=== PATIENT | female | born 1980 | race Caucasian/White ===

== ENCOUNTER 2017-11-18 08:45 | Inpatient (IN) | payer SELFPAY ==
[2017-11-18 09:14] VITALS: BMI 33.1
[2017-11-18] MEDS: Lactated Ringers 1,000 ML 50 ML IV (09:15)
[2017-11-18 09:40] LABS: Hematocrit 36.2 % (37-47); Hemoglobin 11.1 g/dl (12.0-15.0); Mean Corp Hgb Conc 30.7 g/gl (32-36); Mean Corpuscular Hgb 24.2 pg (27.0-32.0); Mean Platelet Vol. 9.3 fl (6.2-12.0); Platelet Count 179 K/mm3 (150-450); RBC Distribution Width CV 18.1 % (11.6-14.6); RBC Distribution Width SD 51.4 fl (35.1-43.9); Red Blood Count 4.58 M/mm3 (4.2-5.4); Scan Indicated on CBC? Y/N NO; White Blood Count 9.1 K/mm3 (4.4-11.0)
--- NOTE | 2017-11-18 09:56 | PCM.HP.OB ---
History Date of Admission: 11/18/17 Final BRIGIDA: 11/23/17 Final BRIGIDA Source: LMP Gestational age: 39 Weeks and 2 Days History of this : @ 39.2 wks c/o contractions since 6am- on admission patient was 6cm rapdily progressed to FD- transverse position head at maternal left. After IV started External cephalic version performed- Vertex confirmed with membranes protruding beyond head into vagina- Patient placed in Hands and knees to bring head down and to reduced membranes as not sure if cord was present. Pertinent Past Medical History: PMH: LLE DVT- declines anticoagulation PSX: wisdom tooth extraction Allergies No Known Allergies Allergy (Verified 06/27/14 11:11) Smoking Status: Never smoker Alcohol: None Drug Use: none Number of Fetus(es): 1 Review of Systems Constitutional: Denies: Anorexia Cardiovascular: Denies: Chest Pain Physical Exam General: Alert, Oriented x3 Abdomen: Soft, Gravid Extremities:: Other - significant LE varicose veins Estimated gestational size: Appropriate for gestational size Presentation: Cephalic Cervix Dilation (cm): 10 Station: -2 Effacement (%): 100 Assessment/Plan @ 39.2 wks in active labor 1) admit to l&D 2) vertex after external cephalic version 3) Monitor fhr/toco 4) anticpate 5) PNL reviewed- GBS neg, AB+, HIV neg, hep b neg, syphilis neg, rub imm
[2017-11-18] MEDS: Oxytocin 30 units/NS 500 ml 30 UNITS/500 ML IV.SOLN 334 UNITS IV (11:13)
--- NOTE | 2017-11-18 11:16 | PCM.OB.VAG ---
Vaginal Delivery Maternal Presentation: Active Labor, - - transverse at time of arrival- external cephalic version performed- successful . Method of Induction: Pitocin Amniotic Membrane Rupture Type: Artificial Amniotic Fluid Description: Clear Final BRIGIDA: 11/23/17 Gestational age: 39 Weeks and 2 Days Date of Procedure: 11/18/17 Pre-Operative Diagnosis: term gestation in active labor Post-Operative Diagnosis: live male infant Surgery/ Procedure Performed: Spontaneous Vaginal Delivery Type of Anesthesia: None Description of Procedure: of live male infant. pt without epidural- tightening up - asked to pull legs back to allow more room for delivery- head delivered followed by anterior shoulder with gentle downward traction. Delayed cord clamping performed. Presentation: Vertex Placental Delivery Description: Spontaneous Placenta Disposition: [facility] Cord Vessel Description: 3 Vessels Cord Entanglement: None Estimated Blood Loss: 300 Infant A gender: Male (1 minute): 8 (5 minute): 9 Episiotomy Description: None Laceration: None Medications given after delivery: IV Pitocin Complications: None
--- NOTE | 2017-11-18 11:27 | DCINST_ITS ---
Discharge Diet: No Restrictions Discharge Activity: Return to Normal Activity, May not drive while taking narcotic pain medications., May Shower May resume sexual activity in: 4-6 weeks Additional Activity Instructions:: Nothing in the vagina for 4-6 weeks. You may return to work/school in 6 weeks. Call your doctor if your incision/area has: Continuous Slow Oozing, Sudden Increased Bleeding, Increased Pain/ Swelling, Increased Redness, Foul Smelling Discharge Additional Instructions: If you experience any of the following, contact your healthcare provider. * Bleeding that soaks a pad every hour for 2 hours * Fever 100.4 or higher * Unrelieved incision or abdominal pain * Swelling, redness, discharge or bleeding from your incision or episiotomy site * Your incision begins to separate * Problems urinating (including inability to urinate or burning while urinating) . * Visual changes * Severe headache * Flu-like symptoms * Pain or redness in one of both of your breasts * Pain, warmth, tenderness or swelling in your legs, especially the calf area * Frequent nausea and vomiting * Symptoms of depression or anxiety If you experience any of the following, call 911 or go to the nearest Emergency Room. * Chest pain * Problems breathing * Seizure activity * Partial or complete paralysis of a body part, slurred speech, weakness or drooping of the face, or a sudden inability to walk or hold your balance Allergies/Adverse Reactions: Allergies No Known Allergies Allergy (Verified 06/27/14 11:11) Medications to take at Discharge Calcium (Elemental) [Os-Barron 500] 500 mg PO BIDCM 06/27/14 Garlic 4 capsule PO BID 06/27/14 [place]-3 Fatty Acids/Fish Oil [[place] 3 Fish Oil Softgel] 4 capsule PO TID Vits [Prenatabs FA ] 1 tablet PO BID 06/27/14 Ferrous Sulfate Syrup 300 mg PO BIDCM 03/01/16 Naproxen [Naprosyn] 250 - 500 mg PO Q8H PRN PRN #30 tab 11/18/17 The following prescriptions were given: Naproxen [Naprosyn] 250 - 500 mg PO Q8H PRN PRN #30 tab PRN Reason: MILD PAIN (1-10/23) When: Call to make an appointment with your doctor in 6 weeks. If you had elevated Blood Pressure or 4th degree laceration you will need to be seen in 2 weeks.
--- NOTE | 2017-11-18 11:27 | PCM.DCVAG ---
Discharge Diet: No Restrictions Discharge Activity: Return to Normal Activity, May not drive while taking narcotic pain medications., May Shower May resume sexual activity in: 4-6 weeks Additional Activity Instructions:: Nothing in the vagina for 4-6 weeks. You may return to work/school in 6 weeks. Call your doctor if your incision/area has: Continuous Slow Oozing, Sudden Increased Bleeding, Increased Pain/ Swelling, Increased Redness, Foul Smelling Discharge Additional Instructions: If you experience any of the following, contact your healthcare provider. Bleeding that soaks a pad every hour for 2 hours Fever 100.4 or higher Unrelieved incision or abdominal pain Swelling, redness, discharge or bleeding from your incision or episiotomy site Your incision begins to separate Problems urinating (including inability to urinate or burning while urinating). Visual changes Severe headache Flu-like symptoms Pain or redness in one of both of your breasts Pain, warmth, tenderness or swelling in your legs, especially the calf area Frequent nausea and vomiting Symptoms of depression or anxiety If you experience any of the following, call 911 or go to the nearest Emergency Room. Chest pain Problems breathing Seizure activity Partial or complete paralysis of a body part, slurred speech, weakness or drooping of the face, or a sudden inability to walk or hold your balance Allergies/Adverse Reactions: Allergies No Known Allergies Allergy (Verified 06/27/14 11:11) Medications to take at Discharge Calcium (Elemental) [Os-Barron 500] 500 mg PO BIDCM 06/27/14 Garlic 4 capsule PO BID 06/27/14 [place]-3 Fatty Acids/Fish Oil [[place] 3 Fish Oil Softgel] 4 capsule PO TID 06/27/14 Vits [Prenatabs FA ] 1 tablet PO BID 06/27/14 Ferrous Sulfate Syrup 300 mg PO BIDCM 03/01/16 Naproxen [Naprosyn] 250 - 500 mg PO Q8H PRN PRN #30 tab 11/18/17 The following prescriptions were given: Naproxen [Naprosyn] 250 - 500 mg PO Q8H PRN PRN #30 tab PRN Reason: MILD PAIN (1-3/10) When: Call to make an appointment with your doctor in 6 weeks. If you had elevated Blood Pressure or 4th degree laceration you will need to be seen in 2 weeks.
[2017-11-18] MEDS: Acetaminophen 500 MG Tablet 1000 MG PO (11:42)
[2017-11-18] MEDS: Oxytocin 30 units/NS 500 ml 30 UNITS/500 ML IV.SOLN 167 UNITS IV (11:45)
[2017-11-18 17:08] VITALS: BP 96/66; PULSE 92; RESP 16; TEMP 36.1; O2SAT 98
--- NOTE | 2017-11-18 17:12 | NURSING ---
assumed pt care at 1700
[2017-11-18 19:58] VITALS: BP 94/66; PULSE 92; RESP 16; TEMP 36.2; O2SAT 96
[2017-11-19 02:10] VITALS: BP 102/66; PULSE 94; RESP 18; TEMP 36.4; O2SAT 99
--- NOTE | 2017-11-19 08:03 | PCM.PN.OB ---
Subjective: pt seen at bedside, doing well. pt reports good pain control. lochia mild. breast feeding. - Physical Exam General: Alert, Oriented x3 Abdomen: Soft, Non Tender, - - fundus firm Extremities: No Calf Tenderness Vital Signs Temp Pulse Resp BP Pulse Ox 97.5 F L 94 18 102/66 99 11/19/17 02:10 11/19/17 02:10 11/19/17 02:10 11/19/17 02:10 11/19/17 02:10 Oxygen Delivery Method Room Air Weight: 84.878 kg Body Mass Index (BMI) 33.1 Intake and Output for Last 24 Hours 11/17/17 11/18/17 11/19/17 23:59 23:59 23:59 Output Total 200 / 200 Balance -200 / -200 Laboratory Tests Past 24 Hrs 11/18/17 11/18/17 09:20 09:20 WBC 9.1 RBC 4.58 Hgb 11.1 L Hct 36.2 L MCV 79.0 L MCH 24.2 L MCHC 30.7 L RDW 18.1 H RDW Differential 51.4 H Plt Count 179 MPV 9.3 Blood Type AB POSITIVE Antibody Screen NEGATIVE Medical Necessity - Tobacco Use Smoking Status: Never smoker Assessment/Plan PPD#1, doing well routine care pain mgmt pt declines anticoagulation treatment- h/o DVT dc home
[2017-11-19 09:04] VITALS: BP 99/60; PULSE 102; RESP 15; TEMP 36.7; O2SAT 98
[2017-11-19 13:26] VITALS: BP 106/72; PULSE 110; RESP 14; TEMP 36.4; O2SAT 98
== END 2017-11-19 14:55 | disposition home or self-care (01) | DRG 774 ==
PROVIDERS: Admitting Provider Obstetrics & Gynecology; Visit Provider Obstetrics & Gynecology
DX: O32.2XX0 Maternal care for transverse and oblique lie, not applicable or unspecified (principal); O22.33 Deep phlebothrombosis in pregnancy, third trimester; I82.402 Acute embolism and thrombosis of unspecified deep veins of left lower extremity; Z3A.39 39 weeks gestation of pregnancy; Z37.0 Single live birth
CPT/HCPCS: 59025; 59050; 85027; 86850; 86900; 99218; J7120; G0378

== ENCOUNTER 2019-08-18 08:15 | Inpatient (IN) | payer SELFPAY ==
[2019-08-18] MEDS: Lactated Ringers 1,000 ML 125 ML IV (07:35)
[2019-08-18 07:51] VITALS: BMI 31.0
--- NOTE | 2019-08-18 08:15 | PCM.HP.OB ---
- Problem List (1) Oblique presentation, antepartum Status: Acute (2) History of DVT (deep vein thrombosis) Status: Acute (3) Anemia Status: Acute (4) Late care Status: Acute (5) Short interval between pregnancies affecting , antepartum Status: Acute (6) History of delivery Status: Acute (7) Advanced maternal age (AMA) in Status: Acute History Date of Admission: 08/18/19 Final BRIGIDA: 09/01/19 Final BRIGIDA Source: LMP Gestational age: 38 Weeks and 0 Days History of this : This is a 39 year-old, G 10, P8107, at 38 weeks gestational age who presents for a version and IOL for variable lie. Pt feels well. No ctx, vb, lof. Good FM. Allergies No Known Allergies Allergy (Verified 08/18/19 07:56) Home Medications: Home Medications Calcium (Elemental) [Os-Barron 500] 500 mg PO BIDCM 06/27/14 Garlic 4 capsule PO BID 06/27/14 [place]-3 Fatty Acids/Fish Oil [[place] 3 Fish Oil Softgel] 4 capsule PO TID 06/27/14 Vits [Prenatabs FA ] 1 tablet PO BID 06/27/14 Ferrous Sulfate Syrup 300 mg PO BIDCM 03/01/16 Smoking Status: Never smoker Number of Fetus(es): 1 NST - FHR Rate Baby A Baseline: 130 Variability:: Moderate Accelerations:: 15 x 15 Decelerations:: None NST Reactive:: Yes FHR Category:: Category I Uterine Activity:: Irritability History Past Pregnancies: Past Pregnancies Delivery Date Name GA/ Weeks Outcome Route Wt Sex Labor Length Anesthesia Delivery Location Provider FOB Labs: GBS neg Hgb 10.3 Syphilis NR RI Hep B neg HIV NR AB positive Antibody screen neg 1 hr GTT 128 GC/CT neg Expected Delivery Method: Spontaneous Vaginal Review of Systems Gynecological: Reports: - - No ctx, vb, lof. +FM Physical Exam General: Alert, No apparent distress HEENT: Atraumatic Abdomen: Soft, Non Tender, Gravid Extremities:: No edema Neurological: Neuro grossly intact [employer]: Normal external genitalia Estimated gestational size: Appropriate for gestational size Presentation: - - Oblique Cervix Dilation (cm): 4 Station: -2 Effacement (%): 60 Assessment/Plan All Active Problems Oblique presentation, antepartum (Acute) History of DVT (deep vein thrombosis) (Acute) Anemia (Acute) Late care (Acute) Short interval between pregnancies affecting , antepartum (Acute) History of delivery (Acute) Advanced maternal age (AMA) in (Acute) This is a 39 year-old, G 10, P 7, at 38 weeks gestational age who presents for a version and induction of labor due to variable lie. -Transabdominal ultrasound performed and fetus is in oblique position with head in the maternal right pelvis. head palpated on cervical exam, but the head is very ballotable. Unable to rupture membranes given this. Discussed with Dr. Freedman and will start Pitocin at this time. We will then reassess and see if rupture of membranes can be performed - Admit for induction - Pt does not desire epidural - GBS negative - H/o DVT: Has been refusing anticoagulation and understands the risk of DVT/PE and - Pit gtt and then will perform another US. Will rupture when able
[2019-08-18 08:30] LABS: Absolute Lymphocyte Count 1.09 X10^3/uL (0.83-4.51); Absolute Neutrophil Count 5.2 X10^3/uL (2.0-7.7); Basophil# 0.02 X10^3/uL; Basophil% 0.3 % (0-1); Eosinophil# 0.11 X10^3/uL; Eosinophils% 1.6 % (0-5); Hematocrit 31.7 % (37-47); Hemoglobin 9.9 g/dL (12.0-15.0); Lymphocyte # 1.09 X10^3/ul (4.0); Lymphocyte % 15.6 % (19-41); Mean Corp Hgb Conc 31.2 g/dL (32-36); Mean Corpuscular Hgb 24.8 pg (27.0-32.0); Mean Corpuscular Volume 79.3 fL (81-99); Mean Platelet Vol. 9.8 fl (6.2-12.0); Monocyte# 0.54 X10^3/uL; Monocyte% 7.7 % (0-10); NRBC Flagged by Analyzer 0 % (0-5); Neutrophil # 5.17 X10^3/uL (2.7-7.7); Neutrophil % 74.1 % (47-70); Platelet Count 183 K/mm3 (150-450); RBC Distribution Width CV 18.1 % (11.6-14.6); RBC Distribution Width SD 51.6 fl (35.1-43.9)
[2019-08-18] MEDS: Oxytocin 30 units/NS 500 ml 30 UNITS/500 ML IV.SOLN IV (08:38)
[2019-08-18] MEDS: Lactated Ringers 1,000 ML 50 ML IV (08:38)
--- NOTE | 2019-08-18 12:42 | PCM.PN.BLA ---
Progress Note Cvx 460/-2, head palpated, AROM performed in usual fashion with return of clear fluid. head engaged in pelvis and well applied to cervix. Anticipate .
[2019-08-18] MEDS: Lactated Ringers 500 ML 999 ML IV (14:59)
[2019-08-18] MEDS: Oxytocin 30 units/NS 500 ml 30 UNITS/500 ML IV.SOLN 334 UNITS IV (15:41)
--- NOTE | 2019-08-18 15:51 | OP.PCM_ITS ---
Problem List (1) Oblique presentation, antepartum Status: Acute (2) History of DVT (deep vein thrombosis) Status: Acute (3) Anemia Status: Acute (4) Late care Status: Acute (5) Short interval between pregnancies affecting , antepartum Status: Acute (6) History of delivery Status: Acute (7) Advanced maternal age (AMA) in Status: Acute Report of Operation Date of Procedure: 08/18/19 Surgery/Procedure Performed:: Description of Surgical Findings:: Viable male in cephalic presentation. Clear fluid. Intact and normal- appearing placenta with a three-vessel cord. Type of Anesthesia:: None Special Medications: None Specimen's removed: Placenta Drains: None Estimated Blood Loss (mL): 200 Description of Procedure: Patient complete and pushing. Head, anterior shoulder, posterior shoulder, followed by body were delivered without any force or delay. Viable male infant was delivered atraumatically and placed on maternal abdomen. Cord was clamped and cut after a 60 sec delay. The placenta was delivered spontaneously and noted to be intact and normal-appearing with a three-vessel cord. Fundus was firm and bleeding hemostatic. No lacerations were noted. Grafts/Implants Used: None - Complications None - Admit VTE Documentation VTE Present on Admission: No Vaginal Delivery Maternal Presentation: Medically Indicated Induction Method of Induction: Pitocin, Amniotomy Amniotic Membrane Rupture Type: Artificial Amniotic Fluid Description: Clear Surgery/ Procedure Performed: Spontaneous Vaginal Delivery Type of Anesthesia: None Presentation: Vertex Placental Delivery Description: Spontaneous Cord Vessel Description: 3 Vessels Cord Entanglement: None Infant A gender: Male Episiotomy Description: None Laceration: None Medications given after delivery: IV Pitocin Complications: None
[2019-08-18 20:11] VITALS: BP 96/66; PULSE 75; RESP 18; TEMP 36.3
[2019-08-19 00:40] VITALS: BP 103/61; PULSE 86; RESP 18; TEMP 36.1; O2SAT 97
[2019-08-19 04:50] VITALS: BP 94/62; PULSE 66; RESP 18; TEMP 36.4; O2SAT 95
[2019-08-19 07:33] VITALS: BP 98/56; PULSE 84; RESP 16; TEMP 36.4
--- NOTE | 2019-08-19 09:26 | PCM.PN.OB ---
Patient Problems: Active and Suspected Problems Oblique presentation, antepartum (Acute) History of DVT (deep vein thrombosis) (Acute) Anemia (Acute) Late care (Acute) Short interval between pregnancies affecting , antepartum (Acute) History of delivery (Acute) Advanced maternal age (AMA) in (Acute) Subjective: Pt doing well. No pain. Ambulating and voiding without difficulty. Tolerating diet. No lightheadedness, dizziness, CP, SOB, leg pain. without difficulty. - Physical Exam Vitals/I&O's: Vital Signs Temp Pulse Resp BP Pulse Ox 97.5 F L 84 16 98/56 L 95 08/19/19 07:33 08/19/19 07:33 08/19/19 07:33 08/19/19 07:33 08/19/19 04:50 Oxygen Delivery Method Room Air Weight: 186 lb 11.704 oz Body Mass Index (BMI) 31.0 Intake and Output for Last 24 Hours 08/17/19 08/18/19 08/19/19 23:59 23:59 23:59 Intake Total 1510.82 / 1510.82 Output Total 600 / 600 Balance 910.82 / 910.82 General: Alert, No apparent distress HEENT: Atraumatic Abdomen: Soft, Non Tender, - - FF@U Extremities: No edema, No Calf Tenderness Skin: No rashes Neurological: Neuro grossly intact Psych/Mental Status: Normal Affect, Appropriate Laboratory Results 08/18/19 07:35: Antibody Screen NEGATIVE Current Medications Acetaminophen (Tylenol) 1,000 mg PO Q8H PRN PRN PRN Reason: Pain Score 1-3/10 Bisacodyl (Dulcolax) 10 mg RECTAL UD PRN PRN Reason: If no BM Dibucaine (Dibucaine) 1 applic TOPICAL TID PRN PRN; Protocol PRN Reason: Discomfort Enoxaparin Sodium (Lovenox) 40 mg SC 2200 RAJESH Last Admin: 08/18/19 22:34 Dose: Not Given Documented by: Hydrocortisone (Hytone) 1 applic TOPICAL TID PRN PRN; Protocol PRN Reason: Discomfort Ibuprofen (Motrin) 600 mg PO Q6H PRN PRN PRN Reason: Pain Score 1-3/10 Methylergonovine Maleate (Methergine) 0.2 mg IM X1 PRN PRN Reason: Excess bleeding/uterine atony Ondansetron HCl (Zofran) 4 mg IV Q4H PRN PRN PRN Reason: Nausea Senna/Docusate Sodium (Senokot-S, Stephanie-Colace) 1 - 2 tablet PO DAILY PRN PRN PRN Reason: Constipation Simethicone (Mylicon) 80 mg PO PCHS PRN PRN Reason: Indigestion/Stomach pain Sodium Chloride () 5 - 15 ml IV UD PRN PRN Reason: SALINE FLUSH Medical Necessity - Tobacco Use Smoking Status: Never smoker Assessment/Plan All Active Problems Oblique presentation, antepartum (Acute) History of DVT (deep vein thrombosis) (Acute) Anemia (Acute) Late care (Acute) Short interval between pregnancies affecting , antepartum (Acute) History of delivery (Acute) Advanced maternal age (AMA) in (Acute) PPD#1 s/p - Pt doing well - - Declines control - H/o DVT: Pt refused Lovenox yesterday. Discussed risk of DVT/PE and reviewed importance of Lovenox for 6 weeks. Pt declines Lovenox . Reviewed signs of DVT/PE and when to call or go to ED. She understands risk of - Dispo: Pt desires to go home today
--- NOTE | 2019-08-19 09:30 | DCINST_ITS ---
Discharge Diet: No Restrictions Discharge Activity: May Drive, May Shower May resume sexual activity in: 6 weeks Ice area for (Minutes): 20 Weight Bearing Status: Full weight bearing Lifting Restrictions: None Call your doctor if you observe: Fever of 101 or Higher, Inability to urinate, Inability to have a bowel movement, Using more than one pad per hour, Shortness of breath, Dizziness, Swelling in the ankles, Chest pain, Increased palpitations (irregular heartbeat), Calf discomfort, Uncontrolled pain Instructions: After a Vaginal Additional Instructions: If you experience any of the following, contact your healthcare provider. * Bleeding that soaks a pad every hour for 2 hours * Fever 100.4 or higher * Unrelieved incision or abdominal pain * Swelling, redness, discharge or bleeding from your incision or episiotomy site * Your incision begins to separate * Problems urinating (including inability to urinate or burning while urinating). * Visual changes * Severe headache * Flu-like symptoms * Pain or redness in one of both of your breasts * Pain, warmth, tenderness or swelling in your legs, especially the calf area * Frequent nausea and vomiting * Symptoms of depression or anxiety If you experience any of the following, call 911 or go to the nearest Emergency Room. * Chest pain * Problems breathing * Seizure activity * Partial or complete paralysis of a body part, slurred speech, weakness or drooping of the face, or a sudden inability to walk or hold your balance Allergies/Adverse Reactions: Allergies No Known Allergies Allergy (Verified 08/18/19 07:56) Medications to take at Discharge Calcium (Elemental) [Os-Barron 500] 500 mg PO BIDCM 06/27/14 Garlic 4 capsule PO BID 06/27/14 [place]-3 Fatty Acids/Fish Oil [[place] 3 Fish Oil Softgel] 4 capsule PO TID 06/27/14 Vits [Prenatabs FA ] 1 tablet PO BID 06/27/14 Ferrous Sulfate Syrup 300 mg PO BIDCM 03/01/16 Please Follow Up With: Piedad Contreras DO When: 6 weeks Primary Care Physician: Care Physician,No Primary [Primary Care Provider] - Test Results: Test results from this visit will be discussed in further detail at your follow- up appointment, if applicable.
[2019-08-19 12:00] VITALS: BP 93/57; PULSE 86; RESP 16; TEMP 36.6
[2019-08-19 17:56] VITALS: BP 114/69; PULSE 82; RESP 16; TEMP 36.7
== END 2019-08-19 17:20 | disposition home or self-care (01) | DRG 807 ==
LOC: WPOUT 08:20 → WP 08:20
PROVIDERS: Admitting Provider Obstetrics & Gynecology; Referring Provider Obstetrics & Gynecology; Visit Provider Obstetrics & Gynecology
DX: O26.23 Pregnancy care for patient with recurrent pregnancy loss, third trimester (principal); Z37.0 Single live birth; Z3A.38 38 weeks gestation of pregnancy; Z86.718 Personal history of other venous thrombosis and embolism
CPT/HCPCS: 59025; 59050; 85025; 86850; 86900; 86901; 99218; J7120; G0378

== ENCOUNTER 2022-03-03 06:47 | Inpatient (IN) | payer SELFPAY, OTHER ==
[2022-03-03] VITALS (33 sets, daily range): BP systolic 89–123; BP diastolic 55–74; PULSE 77–112; RESP 17; TEMP 36.3–36.9; O2SAT 91–100; BMI 30.1
[2022-03-03] MEDS: Lactated Ringers 1,000 ML 50 ML IV (08:50)
--- NOTE | 2022-03-03 09:01 | PCM.HP.OB ---
HPI - General General Date of Admission: 03/03/22 Date of Service: 03/03/22 HPI Narrative ARNULFO COOLEY, is a 42 F who presents for induction. Maternal Data Information Final BRIGIDA: 03/10/22 Gestational age: 39 weeks [facility] Medical History Superficial varicosities Home Medications Garlic 4 capsule PO BID 06/27/14 [History Last Taken 03/03/22] calcium carbonate 500 mg calcium (1,250 mg) tablet ([place]yster Shell Calcium 500) 500 mg PO BIDCM 06/27/14 [History Last Taken 03/03/22] omega-3 fatty acids-fish oil 684 mg-1,200 mg capsule,delayed release (One-Per-Day [place]-3) 4 capsule PO TID 06/27/14 [History Last Taken 03/03/22] vits,calcium no.78-iron fumarate-folic acid 29 mg-1 mg tablet (Prenatabs FA) 1 tab PO BID 06/27/14 [History Last Taken 03/03/22] ferrous sulfate 300 mg (60 mg iron)/5 mL oral liquid 300 mg PO BIDCM 03/01/16 [History Last Taken 03/03/22] psyllium seed (sugar) oral powder 1 tbsp PO BID Constipation 03/03/22 [History Last Taken 03/02/22] Allergy/AdvReac Type Severity Reaction Status Date / Time No Known Allergies Allergy Verified 08/18/19 07:56 Social History Smoking Status: Never smoker History Elective abortions Hx Para 9 Spontaneous abortions Hx # Term Pregnancies Ectopic pregnancies Hx # Pregnancies Multiple births # of living children NST FHR Rate Baby A Baseline: 130 Variability:: Moderate Accelerations:: 15 x 15 Decelerations:: Variable Uterine Activity:: Irregular ctxs Vital Signs Vital Signs Vital Signs: 03/03/22 08:15 03/03/22 08:15 03/03/22 08:15 Temperature 97.3 F L Pulse Rate 107 H Blood Pressure 93/63 BP Systolic 93 BP Diastolic 63 Pulse Ox 03/03/22 08:16 03/03/22 08:16 07/19/22 08:55 Temperature Pulse Rate 108 H Blood Pressure 123/74 H BP Systolic 123 BP Diastolic 74 Pulse Ox 98 03/03/22 08:55 03/03/22 08:59 Temperature 98.2 F Pulse Rate 81 Blood Pressure BP Systolic BP Diastolic Pulse Ox Weight Weight: 186 lb 9.6 oz Body Mass Index (BMI) 30.1 Physical Exam Const alert, oriented x3 and no apparent distress Chest inspection of chest normal GI soft to palpation, non-tender and non-distended Narrative: cvx - 4.5/70/-3, AROM clear fluid Labs Labs Labs: Blood Type AB POSITIVE Antibody Screen NEGATIVE Hct 34.7 % (37-47) L Hgb 11.1 g/dL (12.0-15.0) L Rhogam given: No See [facility] H&P Assessment & Plan (1) History of DVT (deep vein thrombosis): (2) Late care: (3) Advanced maternal age (AMA) in : COMMENT: @ 39 weeks PLAN: Plan Induction for AMA On pitocin & s/p AROM Vtx presentation confirmed with TAUS COVID negative GBS negative EFW - less than 4500g, patient with adequate pelvis Pain - epidural if desired H/o DVT - patient has declined anticoagulation throughout
[2022-03-03 09:24] LABS: Absolute Lymphocyte Count 1.12 X10^3/uL (0.83-4.51); Absolute Neutrophil Count 6.7 X10^3/uL (2.0-7.7); Basophil# 0.04 X10^3/uL; Basophil% 0.5 % (0-1); Eosinophils% 1.2 % (0-5); Hematocrit 34.7 % (37-47); Hemoglobin 11.1 g/dL (12.0-15.0); Lymphocyte # 1.12 X10^3/ul (0.83-4.51); Lymphocyte % 13.2 % (19-41); Mean Corpuscular Hgb 26.9 pg (27.0-32.0); Mean Corpuscular Volume 84.2 fL (81-99); Mean Platelet Vol. 9.4 fl (6.2-12.0); Monocyte# 0.45 X10^3/uL; Monocyte% 5.3 % (0-10); NRBC Flagged by Analyzer 0 % (0-5); Neutrophil # 6.72 X10^3/uL (2.7-7.7); Neutrophil % 79.2 % (47-70); Platelet Count 170 K/mm3 (150-450); RBC Distribution Width CV 16.9 % (11.6-14.6); RBC Distribution Width SD 51.7 fl (35.1-43.9); Red Blood Count 4.12 M/mm3 (4.2-5.4); White Blood Count 8.5 K/mm3 (4.4-11.0)
[2022-03-03] MEDS: Oxytocin 30 units/NS 500 ml 30 UNITS/500 ML IV.SOLN IV (09:41)
[2022-03-03] MEDS: 0.9% Saline Lock 10 ML Syringe IV (14:54)
[2022-03-03] MEDS: Oxytocin 30 units/NS 500 ml 30 UNITS/500 ML IV.SOLN 334 UNITS IV (16:50)
--- NOTE | 2022-03-03 19:03 | EX.PCM.OBRPT ---
Maternal Data Information Final BRIGIDA: 03/10/22 Gestational age: 39 weeks Vaginal Delivery Maternal Presentation Maternal Presentation: Medically Indicated Induction Type of Induction: Pitocin and Amniotomy Medical Reason for Induction: - (AMA) Operative Information Date of Procedure: 03/03/22 Pre-Operative Diagnosis: Advanced maternal age Post-Operative Diagnosis: Same Surgery / Procedure Performed: Spontaneous Vaginal Delivery Type of Anesthesia: None Estimated Blood Loss: 350ml Findings Description of Procedure: Patient prepped & draped when C/C/+1. She pushed well to deliver the head. head gently guided to allow delivery of anterior and posterior shoulders. No excess traction placed on head. Body delivered and 3VC clamped & cut in delayed fashion. Placenta delivered with gentle traction and good uterine tone obtained. Presentation: JAMARI Amniotic Membrane Rupture Type: Artificial Amniotic Fluid Description: Clear Placental Delivery Description: Expressed Placenta Disposition: [facility] Specimen(s) Removed: Placenta Cord Vessel Description: 3 Vessels Cord Entanglement: None Infant A Gender: Female (1 minute): 8 (5 minute): 9 Delayed Cord Clamping: Yes Post Vaginal Delivery Medications Given After Delivery: IV Pitocin Episiotomy Description: None Laceration: None Complication Complications: None
[2022-03-04 04:30] VITALS: BP 100/64; PULSE 77; RESP 16; TEMP 36.2; O2SAT 99
[2022-03-04 08:20] VITALS: BP 103/68; PULSE 97; RESP 14; TEMP 36.1; O2SAT 99
--- NOTE | 2022-03-04 09:02 | PCM.PN.OB ---
Subjective Subjective Patient is doing well. She denies chest pain, shortness of breath, leg pain. She is ambulating voiding without difficulty. Lochia is normal. She is breast-feeding without complaints. She desires to go home today. Objective Data Objective Data Vital Signs: Vital Signs Temp Pulse Resp BP Pulse Ox O2 Del Method 97 F L 97 14 103/68 99 Room Air 03/04/22 08:20 03/04/22 08:20 03/04/22 08:20 03/04/22 08:20 03/04/22 08:20 03/04/22 08:20 Oxygen Delivery Method Room Air Weight: 186 lb 9.6 oz Body Mass Index (BMI) 30.1 Intake & Output: Intake and Output for Last 24 Hours 03/02/22 03/03/22 03/04/22 23:59 23:59 23:59 Intake Total / Output Total 1350 / 1550 200 / 200 Balance 667.99 / 467.99 -200 / -200 Lab / Micro Data Result Diagrams: 03/03/22 08:50 Labs: Laboratory Results - last 24 hr 03/03/22 08:50: WBC 8.5, RBC 4.12 L, Hgb 11.1 L, Hct 34.7 L, MCV 84.2, MCH 26.9 L, MCHC 32.0, RDW Std Deviation 51.7 H, RDW Coeff of Jere 16.9 H, Plt Count 170, MPV 9.4, Immature Gran % (Auto) 0.600, Neut % (Auto) 79.2 H, Lymph % (Auto) 13.2 L, [place] % (Auto) 5.3, Eos % (Auto) 1.2, Baso % (Auto) 0.5, Absolute Neuts (auto) 6.7, Absolute Lymphs (auto) 1.12, Nucleated RBC % 0 03/03/22 08:50: Blood Type AB POSITIVE, Antibody Screen NEGATIVE Micro: Microbiology 03/03/22 09:00 Nasal Secretion SARS-CoV-2 Antigen (Rapid) - Final Physical Exam Const alert and no apparent distress General Appearance: comfortable HEENT normocephalic Resp normal respiratory effort GI soft to palpation and non-tender GI Narrative: FF Extremity no calf tenderness Assessment & Plan (1) History of DVT (deep vein thrombosis): PLAN: Discussed recommendation for Lovenox 6 weeks . Discussed risk of DVT/PE in period. Patient declines Lovenox, and understands she is going AGAINST MEDICAL ADVICE. Reviewed warning signs and symptoms of a blood clot and reasons to call. (2) Vaginal delivery: PLAN: Pt is doing well desires discharge. Discharge instructions reviewed. To follow-up in the office.
--- NOTE | 2022-03-04 09:05 | DCINST_ITS ---
Discharge Instructions Diet Discharge Diet: No restrictions Activity Discharge Activity: May Shower May resume sexual activity in: 6 weeks Weight Bearing Status: Weight bearing as tolerated Lifting Restrictions: nothing heavier than baby Dressing / Incision Call your doctor if you observe: Fever of 101 or Higher, Coldness, Increased Pain, Numbness or Tingling, Change in Color, Inability to urinate, Inability to have a bowel movement, Using more than 1 pad per hour, Shortness of breath, Dizziness, Fainting spells, Swelling in the ankles, Chest pain, Increased palpitations (irregular heartbeat), Calf discomfort and Uncontrolled pain Follow Up Care When: 1-2 week early if you desire 6 week Test Results: Test results from this visit will be discussed in further detail at your follow- up appointment, if applicable. Discharge Plan Admission Admit Date/Time: 03/03/22 06:47 Primary Reason for Your Visit: delivery Attending Provider: Ashleigh Freedman Primary Care Provider: Stephania Fox Primary Instructions Patient Instructions: After a Vaginal Discharge Orders/Prescriptions Prescriptions: No Action Prenatabs FA 1 TABLET tablet 1 tab PO BID Garlic capsule 4 capsule PO BID One-Per-Day [place]-3 1 EACH capsule,delayed release(DR/EC) 4 capsule PO TID calcium carbonate [Oyster Shell Calcium 500] 500 MG tablet 500 mg PO BIDCM ferrous sulfate 300 MG/5 ML liquid 300 mg PO BIDCM psyllium seed (sugar) Powder 1 tbsp PO BID Referrals / Follow Up: Care Physician,Stephania Primary [Primary Care Provider] - Disposition Disposition (needs filled in before D/C Order can be placed): Home, Self Care
[2022-03-04 12:35] VITALS: BP 103/70; PULSE 94; RESP 14; TEMP 36.6
[2022-03-04 17:22] VITALS: BP 109/70; PULSE 99; RESP 14
== END 2022-03-04 17:30 | disposition home or self-care (01) | DRG 807 ==
PROVIDERS: Admitting Provider Obstetrics & Gynecology; Visit Provider Obstetrics & Gynecology
DX: O76 Abnormality in fetal heart rate and rhythm complicating labor and delivery (principal); Z37.0 Single live birth; Z86.718 Personal history of other venous thrombosis and embolism; Z3A.39 39 weeks gestation of pregnancy
CPT/HCPCS: 59025; 59050; 85025; 86850; 86900; 86901; 87426; 99218; J7120; A4216; G0378

== ENCOUNTER 2024-03-14 07:15 | Inpatient (IN) | payer SELFPAY, OTHER ==
[2024-03-14] VITALS (37 sets, daily range): BP systolic 92–117; BP diastolic 52–80; PULSE 84–157; RESP 16–18; TEMP 36.2–37.9; O2SAT 89–100; BMI 35.6
[2024-03-14] MEDS: Lactated Ringers 1,000 ML 999 ML IV ×2 (07:55→13:58)
[2024-03-14 08:08] LABS: Absolute Lymphocyte Count 1.39 X10^3/uL (0.83-4.51); Absolute Neutrophil Count 6.4 X10^3/uL (2.0-7.7); Basophil# 0.03 X10^3/uL; Basophil% 0.4 % (0-1); Eosinophils% 1.2 % (0-5); Hematocrit 33.2 % (37-47); Hemoglobin 10.6 g/dL (12.0-15.0); Lymphocyte # 1.39 X10^3/ul (0.83-4.51); Lymphocyte % 16.3 % (19-41); Mean Corp Hgb Conc 31.9 g/dL (32-36); Mean Corpuscular Hgb 24.8 pg (27.0-32.0); Mean Corpuscular Volume 77.8 fL (81-99); Mean Platelet Vol. 9.2 fl (6.2-12.0); Monocyte# 0.58 X10^3/uL; Monocyte% 6.8 % (0-10); NRBC Flagged by Analyzer 0 % (0-5); Neutrophil # 6.37 X10^3/uL (2.7-7.7); Neutrophil % 74.4 % (47-70); Platelet Count 187 K/mm3 (150-450); RBC Distribution Width CV 18.3 % (11.6-14.6); RBC Distribution Width SD 50.4 fl (35.1-43.9); Red Blood Count 4.27 M/mm3 (4.2-5.4); White Blood Count 8.6 K/mm3 (4.4-11.0)
--- NOTE | 2024-03-14 08:16 | PCM.HP.OB ---
HPI - General General Date of Admission: 03/14/24 Chief Complaint: IOL HPI Narrative ARNULFO COOLEY, is a 44 F who presents for IOL at 39 weeks gestation for AMA and grand multiparity. pt has h/o macrosomia in two previous children , h/o DVT - declined anticoagulation. [facility] Medical History (Updated 03/14/24 @ 08:[address] Erin Mann MD) History of DVT (deep vein thrombosis) hemorrhage Vaginal delivery Superficial varicosities Home Medications ?Medication ?Instructions ?Recorded ?Last Taken ?Type Garlic 4 capsule PO BID 06/27/14 03/03/22 History calcium carbonate (Oyster Shell 500 mg PO BIDCM 06/27/14 03/03/22 History Calcium 500) omega-3 fatty acids-fish oil 684 4 capsule PO TID 06/27/14 03/03/22 History mg-1,200 mg capsule,delayed release (One-Per-Day [place]-3) vits,calcium no.78-iron 1 tab PO BID 06/27/14 03/03/22 History fumarate-folic acid 29 mg-1 mg tablet (Prenatabs FA) ferrous sulfate 300 mg (60 mg 300 mg PO BIDCM 03/01/16 03/03/22 History iron)/5 mL oral liquid Allergy/AdvReac Type Severity Reaction Status Date / Time No Known Allergies Allergy Verified 03/14/24 08:00 Surgical History (Updated 03/14/24 @ 08:10 by Nuzhat Tavares) History of surgery Social History Smoking Status: Never smoker History Elective abortions Hx Para 10 Spontaneous abortions Hx # Term Pregnancies Ectopic pregnancies Hx # Pregnancies Multiple births # of living children NST FHR Rate Baby A Baseline: 135 Variability:: Moderate Accelerations:: 15 x 15 Decelerations:: None NST Reactive:: Yes FHR Category:: Category I Uterine Activity:: occasional Vital Signs Vital Signs Vital Signs: 03/14/24 07:58 03/14/24 07:58 03/14/24 08:01 Temperature Temperature Source Temporal Pulse Rate 107 H Respiratory Rate Blood Pressure 106/69 BP Systolic 106 BP Diastolic 69 03/14/24 08:01 03/14/24 08:01 Temperature 97.2 F L Temperature Source Pulse Rate Respiratory Rate 16 Blood Pressure BP Systolic BP Diastolic Weight Weight: 88.564 kg Body Mass Index (BMI) 35.6 Physical Exam Narrative VE: 460/-3 Const alert and oriented x3 General Appearance: cooperative HEENT normocephalic GI GI Narrative: Gravid, non tender to palpation. OB / External & Speculum: external exam normal Extremity normal to inspection Skin no rashes or lesions noted Neuro oriented x3 and CN's II-XII intact bilaterally Psych Appearance: grossly normal Labs Labs Labs: Blood Type AB POSITIVE Antibody Screen NEGATIVE Hct 33.2 % (37-47) L Hgb 10.6 g/dL (12.0-15.0) L Syphilis Total Ab Non-reactive Hepatitis C Antibody Pending Rhogam given: No Assessment & Plan (1) History of delivery: (2) Short interval between pregnancies affecting , antepartum: (3) AMA (advanced maternal age) multigravida 35+: QUALIFIERS: Trimester: third trimester Qualified Code(s): O09.523 - Supervision of elderly multigravida, third trimester (4) Obesity affecting : QUALIFIERS: Obesity type affecting : unspecified obesity Trimester: third trimester Qualified Code(s): O99.213 - Obesity complicating , third trimester (5) Anemia affecting : QUALIFIERS: Trimester: third trimester Qualified Code(s): O99.013 - Anemia complicating , third trimester PLAN: Plan Admit to L&D [facility] FHR/TOCO Epidural if requested for pain Monitor VS Anticipate Pitocin , will AROM when head engages
[2024-03-14] MEDS: Oxytocin 15 Units/NS 250ml 15 UNITS/250 ML IV.SOLN 2 UNITS IV (08:48)
[2024-03-14 08:52] LABS: Syphilis Antibodies Non-reactive
[2024-03-14 09:16] LABS: Hepatitis C Antibody Non-Reactive (Nonreactive)
--- NOTE | 2024-03-14 12:46 | PCM.PN.BLA ---
Progress Note pt seen at bedside, AROM performed /-2 clear fluid- upon AROM hand felt on maternal left with manipulation it was able to be pushed back and head moved more central, belly band applied, ultrasound done to confirm position again- vertex on presenting part in front of head. IUPC and IFM placed. continue pitocin, anticipate .
[2024-03-14] MEDS: Amnioinfusion- 0.9% NS 1,000 ML IV.SOLN. 1000 ML INTRA-UTER (14:14)
[2024-03-14] MEDS: Acetaminophen 500 MG Tablet PO (14:29)
--- NOTE | 2024-03-14 17:26 | OP.PCM_ITS ---
Vaginal Delivery Maternal Presentation Maternal Presentation: Medically Indicated Induction Type of Induction: Pitocin and Amniotomy Operative Information Date of Procedure: 03/14/24 Pre-Operative Diagnosis: AMA, grand multiparity, obesity, h/o DVT, Anemia Post-Operative Diagnosis: Same, live female infant Surgery / Procedure Performed: Spontaneous Vaginal Delivery Type of Anesthesia: None Estimated Blood Loss: 50 Time of Delivery: 17:15 Findings Description of Procedure: Patient complete and pushing. Good maternal pushing efforts delivered the infant's head tight nuchal cord was appreciated. Was doubly clamped and cut. At this time anterior shoulder was then delivered without complication followed by the posterior shoulder followed by the rest of the infant's body. Infant was placed on the mother's chest however it was taken by the blower room attendant for evaluation. At this time the cord was clamped and Pitocin was started. Arterial and venous gases were obtained. Uterus was then delivered without complication and intact. The vagina and perineum were evaluated noted to be intact. Presentation: Vertex Amniotic Membrane Rupture Type: Artificial Amniotic Fluid Description: Clear Placental Delivery Description: Expressed Placenta Disposition: [facility] Specimen(s) Removed: Placenta Cord Vessel Description: 3 Vessels Cord Entanglement: Around neck x 1, tight Nuchal Cord Compression: With compression Cord Gases: ABG and VBG A Gender: Female (1 minute): 7 (5 minute): 8 Delayed Cord Clamping: No Post Vaginal Delivery Medications Given After Delivery: IV Pitocin Episiotomy Description: None Laceration: None Complication Complications: None
[2024-03-14] MEDS: Oxytocin 15 Units/NS 250ml 15 UNITS/250 ML IV.SOLN 83 UNITS IV (18:00)
[2024-03-14] MEDS: Methylergonovine 0.2 MG/ML Ampul IM (18:16)
[2024-03-15 03:45] VITALS: BP 103/71; PULSE 90; RESP 16; TEMP 36.9; O2SAT 97
--- NOTE | 2024-03-15 08:45 | DS.PCM_ITS ---
Providers Date of Admission: 03/14/24 Primary Care Physician: Stephania Primary Care Phys Reason For Visit: VAGINAL DELIVERY Diagnosis Discharge Diagnosis (1) Short interval between pregnancies affecting , antepartum: Status: Acute Code(s): O09.899 - Supervision of other high risk pregnancies, unspecified trimester (2) Vaginal delivery: Status: Acute Code(s): O80 - Encounter for full-term uncomplicated delivery (3) Care and examination of lactating mother: Status: Acute Code(s): Z39.1 - Encounter for care and examination of lactating mother Medications at Discharge Home Medications Garlic 4 capsule PO BID 06/27/14 calcium carbonate (Oyster Shell Calcium 500) 500 mg PO BIDCM 06/27/14 omega-3 fatty acids-fish oil 684 mg-1,200 mg capsule,delayed release (One-Per-Day [place]-3) 4 capsule PO TID 06/27/14 vits,calcium no.78-iron fumarate-folic acid 29 mg-1 mg tablet (Prenatabs FA) 1 tab PO BID 06/27/14 ferrous sulfate 300 mg (60 mg iron)/5 mL oral liquid 300 mg PO BID 03/01/16 Hospital Course Operations None Procedures None Summary of Care Provided Minutes Spent on Discharge: 15 Hospital Course: Patient had . Hospital course was uneventful. Physical Exam Narrative Patient seen at bedside. Denies pain. Ambulating and voiding without difficulty. independently. Desires discharge home today. Const alert and no apparent distress General Appearance: cooperative and comfortable Exam Limitations: no limitations HEENT normocephalic Eyes General Eye: normal appearance of both eyes Neck full ROM General: normal visual inspection Chest Chest: symmetrical chest wall rise Resp normal respiratory effort and normal air movement Effort and Inspection: symmetric chest movement Auscultation: clear to auscultation bilaterally Cardio regular rate and regular rhythm GI normal to inspection, nondistended, normoactive bowel sounds Back/Spine normal ROM Extremity full ROM and no calf tenderness General Extremity: normal exam except as noted Skin no rashes or lesions noted Neuro CN's II-XII intact bilaterally Psych mental status grossly normal Weight / BMI Weight Weight: 195 lb 4 oz Body Mass Index (BMI) 35.6 ABG / Lab / Microbiology Data 03/14/24 07:55 Laboratory: Laboratory Results - last 24 hr 03/14/24 07:55: Syphilis Total Ab Non-reactive, Hepatitis C Antibody Non- Reactive, Antibody Screen NEGATIVE D/C Instructions Discharge Diet: No restrictions May resume sexual activity in: 6-8 weeks Weight Bearing Status: Weight bearing as tolerated Call your doctor if you observe: Fever of 101 or Higher, Inability to urinate, Using more than 1 pad per hour, Shortness of breath, Chest pain, Calf discomfort and Uncontrolled pain Please Follow Up With: Cecile Pepe CNM Meaningful Use Info Meaningful Use Meaningful Use Diagnoses (Choose all that apply): None applicable Ischemic Stroke Statin Dosing Therapy Reference: STATIN DOSE THERAPY REFERENCE: * Patients > 75 years receive moderate or high dose statin therapy. * Patients 75 years or YOUNGER should receive HIGH intensity statin dose unless contraindicated. You will be required to document reason for non-treatment if statin daily dose does not meet guidelines. HIGH DOSE STATIN THERAPY DAILY Atorvastatin > than or = to 40 mg Rosuvastatin > than or = to 20 mg Amlodipine + Atorvastatin > than or = to 2.5/40 mg Ezetimibe + Simvastatin 10/80 mg Simvastatin 80mg Discharge Plan Admission Admit Date/Time: 03/14/24 07:15 Attending Provider: Erin Mann Primary Care Provider: Care Physician,Stephania Primary Discharge Orders/Prescriptions Prescriptions: No Action Prenatabs FA 1 TABLET tablet 1 tab PO BID Garlic capsule 4 capsule PO BID One-Per-Day [place]-3 1 EACH capsule,delayed release(DR/EC) 4 capsule PO TID calcium carbonate [Oyster Shell Calcium 500] 500 MG tablet 500 mg PO BIDCM ferrous sulfate 300 MG/5 ML liquid 300 mg PO BIDCM Referrals / Follow Up: Care Physician,No Primary [Primary Care Provider] - Disposition Disposition (needs filled in before D/C Order can be placed): Home, Self Care
[2024-03-15 08:55] VITALS: BP 96/59; PULSE 79; RESP 16; TEMP 36.1; O2SAT 100
[2024-03-15 12:58] VITALS: BP 99/73; PULSE 91; RESP 16; TEMP 36.4; O2SAT 99
[2024-03-15 18:04] VITALS: BP 101/61; PULSE 97; RESP 16; TEMP 36.7; O2SAT 98
== END 2024-03-15 18:40 | disposition home or self-care (01) | DRG 807 ==
PROVIDERS: Admitting Provider Obstetrics & Gynecology; Referring Provider Obstetrics & Gynecology; Visit Provider Obstetrics & Gynecology
DX: O99.214 Obesity complicating childbirth (principal); Z37.0 Single live birth; O69.1XX0 Labor and delivery complicated by cord around neck, with compression, not applicable or unspecified; O99.02 Anemia complicating childbirth; Z3A.39 39 weeks gestation of pregnancy; Z86.718 Personal history of other venous thrombosis and embolism; Z87.59 Personal history of other complications of pregnancy, childbirth and the puerperium
CPT/HCPCS: 59025; 59050; 85025; 86780; 86803; 86850; 86900; 86901; J7030; J7120; J2405